=== PATIENT | male | born 1955 | race Caucasian/White ===

== ENCOUNTER 2017-07-19 14:41 | Emergency (ER) | payer MEDICARE, BC ==
[~2017-07-19] VITALS: Ht 188 cm; Wt 123.0 kg
[2017-07-19 14:48] VITALS: BP 144/77; PULSE 85; RESP 16; TEMP 98.5; O2SAT 96
--- NOTE | 2017-07-19 15:09 | PD ---
HPI Chief Complaint: Complaint Time Seen by Provider: 14:54 Travel History International Travel<30 days: No Contact w/Intl Traveler<30days: No Traveled to known affect area: No History of Present Illness HPI This patient complains of generalized weakness and excessive fatigue. Duration 3 days. Severity is moderate. He also complains that for one day he's had intermittent right flank pains which radiated to the right testicle. He also developed hematuria today. Denies fever or injury. No alleviating factors. No exacerbating factors PFSH Past Medical History Diminished Hearing: No Kidney Stones: Yes Respiratory: Yes (sleep apnea uses cpap) Influenza Vaccination: No Past Surgical History Surgical History: No Previous Surgery Eye Surgery: No Social History Alcohol Use: Yes Tobacco Use: No Allergies-Medications (Allergen,Severity, Reaction): Coded Allergies: No Known Allergies (Unverified , 07/19/17) Reported Meds & Prescriptions Reported Meds & Active Scripts Active No Active Prescriptions or Reported Medications Review of Systems General / Constitutional: No: Fever Eyes: No: Visual changes HENT: No: Headaches Cardiovascular: No: Chest Pain or Discomfort Respiratory: No: Shortness of Breath Gastrointestinal: No: Abdominal Pain Genitourinary: Positive: Hematuria, Flank Pain, No: Dysuria Musculoskeletal: Positive: Weakness, No: Pain Skin: No Rash Neurologic: Positive: Weakness Psychiatric: No: Depression Endocrine: No: Polydipsia Hematologic/Lymphatic: No: Easy Bruising Physical Exam Narrative GENERAL: Well-nourished, well-developed patient in no apparent distress. SKIN: Focused skin assessment reveals no rash and nodules. Skin is Warm and dry. HEAD: Atraumatic. Normocephalic. EYES: Pupils equal and round. No scleral icterus. No injection or drainage. ENT: No nasal bleeding or discharge. Mucous membranes pink and moist. NECK: Trachea midline. No JVD. CARDIOVASCULAR: Regular rate and rhythm. No murmur appreciated. RESPIRATORY: No accessory muscle use. Clear to auscultation. Breath sounds equal bilaterally. GASTROINTESTINAL: Abdomen soft, protuberant, non-tender, nondistended. Hepatic and splenic margins not palpable. MUSCULOSKELETAL: No obvious deformities. No clubbing. No cyanosis. No edema. NEUROLOGICAL: Awake and alert. No obvious cranial nerve deficits. Motor grossly within normal limits. Normal speech. PSYCHIATRIC: Appropriate mood and affect; insight and judgment normal. : Circumcised penis without lesions. No tenderness of either testicle. Data Data Last Documented VS Vital Signs Date Time Temp Pulse Resp B/P (MAP) Pulse Ox O2 Delivery O2 Flow Rate FiO2 07/19/17 14:48 98.5 85 16 144/77 (99) 96 Orders Orders Complete Blood Count With Diff (07/19/17 15:02) Comprehensive Metabolic Panel (07/19/17 15:02) Urinalysis - C+S If Indicated (07/19/17 15:02) Ct Abd/Pel W/O Iv Contrast (07/19/17 15:02) Iv Access Insert/Monitor (07/19/17 15:02) Sodium Chloride 0.9% Flush (Ns Flush) (07/19/17 15:15) Urine Culture (07/19/17 15:10) Labs Laboratory Tests Test 07/19/17 15:05 07/19/17 15:10 White Blood Count 7.1 TH/MM3 Red Blood Count 4.96 MIL/MM3 Hemoglobin 14.7 GM/DL Hematocrit 44.8 % Mean Corpuscular Volume 90.2 FL Mean Corpuscular Hemoglobin 29.6 PG Mean Corpuscular Hemoglobin Concent 32.8 % Red Cell Distribution Width 12.3 % Platelet Count 264 TH/MM3 Mean Platelet Volume 6.9 FL Neutrophils (%) (Auto) 71.3 % Lymphocytes (%) (Auto) 17.5 % Monocytes (%) (Auto) 9.8 % Eosinophils (%) (Auto) 1.1 % Basophils (%) (Auto) 0.3 % Neutrophils # (Auto) 5.1 TH/MM3 Lymphocytes # (Auto) 1.2 TH/MM3 Monocytes # (Auto) 0.7 TH/MM3 Eosinophils # (Auto) 0.1 TH/MM3 Basophils # (Auto) 0.0 TH/MM3 CBC Comment DIFF FINAL Differential Comment Blood Urea Nitrogen 22 MG/DL Creatinine 1.30 MG/DL Random Glucose 96 MG/DL Total Protein 7.5 GM/DL Albumin 3.7 GM/DL Calcium Level 9.1 MG/DL Alkaline Phosphatase 81 U/L Aspartate Amino Transf (AST/SGOT) 30 U/L Alanine Aminotransferase (ALT/SGPT) 61 U/L Total Bilirubin 0.9 MG/DL Sodium Level 136 MEQ/L Potassium Level 4.1 MEQ/L Chloride Level 101 MEQ/L Carbon Dioxide Level 29.5 MEQ/L Anion Gap 6 MEQ/L Estimat Glomerular Filtration Rate 56 ML/MIN Urine Collection Type CLEAN CATCH Urine Color PINK Urine Turbidity MOD Urine pH 5.5 Urine Specific [place] 1.028 Urine Protein 100 mg/dL Urine Glucose (UA) NEG mg/dL Urine Ketones NEG mg/dL Urine Occult Blood LARGE Urine Nitrite NEG Urine Bilirubin NEG Urine Leukocyte Esterase SMALL Urine RBC INNUM /hpf Urine WBC 25-49 /hpf Urine Squamous Epithelial Cells 6-8 /hpf Microscopic Urinalysis Comment CULTURE INDICATED Urine Collection Time 15:10 MDM Medical Decision Making Medical Screen Exam Complete: Yes Emergency Medical Condition: Yes Medical Record Reviewed: Yes Differential Diagnosis Kidney stone, anemia, flu syndrome Narrative Course I have reviewed the patient's electronic medical record. IV placed CBC is normal metabolic profile is normal LFT's are normal Urinalysis shows hematuria and will be cultured CT of abdomen and pelvis without contrast shows nothing emergent. No stone or renal mass. There is some incidental liver findings Patient stable for outpatient follow-up Recommend primary care and urology follow-up Diagnosis Primary Impression: Gross hematuria Additional Impressions: Fatigue Qualified Codes: R53.83 - Other fatigue Generalized weakness Flank pain Additional Instructions: Follow-up with primary care and urology Med/Other Pt SpecificInfo: Other Scripts No Active Prescriptions or Reported Meds Disposition: 01 DISCHARGE HOME Condition: Stable Curry Sanders MD Jul 19, 2017 15:09
[2017-07-19 15:12] LABS: AUTOMATED NEUTROPHIL # 5.1 TH/MM3 (1.8-7.7); BASOPHIL % 0.3 % (0.0-2.0); EOSINOPHIL # 0.1 TH/MM3 (0-0.4); EOSINOPHIL % 1.1 % (0.0-4.0); HEMATOCRIT 44.8 % (39.0-51.0); HEMO FLAGS DIFF FINAL; LYMPH % 17.5 % (9.0-44.0); LYMPHOCYTE # 1.2 TH/MM3 (1.0-4.8); MEAN CELL VOLUME 90.2 FL (80.0-100.0); MEAN CORPUSCULAR HEMOGLOBIN 29.6 PG (27.0-34.0); MEAN CORPUSCULAR HGB CONC 32.8 % (32.0-36.0); MONO % 9.8 % (0.0-8.0); NEUT % 71.3 % (16.0-70.0); PLATELET COUNT 264 TH/MM3 (150-450); RED BLOOD COUNT 4.96 MIL/MM3 (4.50-5.90); RED CELL DISTRIBUTION WIDTH 12.3 % (11.6-17.2); WHITE BLOOD COUNT 7.1 TH/MM3 (4.0-11.0)
[2017-07-19] MEDS ORDERED: SODIUM CHLORIDE 0.9% FLUSH 10 ML FLUSH IV FLUSH PRN (15:15)
[2017-07-19 15:16] LABS: BLOOD, URINE LARGE (NEG); GLUCOSE,URINE NEG (NEG); KETONE, URINE NEG (NEG); NITRITE,URINE NEG (NEG); PH, URINE 5.5 (5.0-8.5)
[2017-07-19 15:25] LABS: METHOD OF COLLECTION CLEAN CATCH; URINE COLOR PINK (YELLW/STRAW)
[2017-07-19 15:26] LABS: COMMENT (UR) CULTURE INDICATED; CULTURE IF INDICATED CULTURE INDICATED; RBC, URINE INNUM /hpf (0-3)
[2017-07-19 15:26] LABS: CHLORIDE 101 MEQ/L (98-107); POTASSIUM 4.1 MEQ/L (3.5-5.1); SODIUM (NA) 136 MEQ/L (136-145)
[2017-07-19 15:30] LABS: ANION GAP 6 MEQ/L (5-15); BICARBONATE 29.5 MEQ/L (21.0-32.0); BLOOD UREA NITROGEN 22 MG/DL (7-18)
[2017-07-19 15:33] LABS: ALT (GPT) 61 U/L (12-78); AST (GOT) 30 U/L (15-37); GLOMERULAR FILTRATION RATE 56 ML/MIN (>89)
[2017-07-19 15:35] LABS: TOTAL BILIRUBIN ADULT 0.9 MG/DL (0.2-1.0)
[2017-07-19 15:36] LABS: ALKALINE PHOSPHATASE 81 U/L (45-117)
--- NOTE | 2017-07-19 16:06 | RADRPT ---
EXAM DATE/TIME: 07/19/2017 15:20 [facility] COMPARISON: No previous studies available for comparison. INDICATIONS : Lower abdominal pain and hematuria today. General weakness x 3 days. ORAL CONTRAST: No oral contrast ingested. RADIATION DOSE: 23.65 CTDIvol (mGy) MEDICAL HISTORY : Renal calculi. SURGICAL HISTORY : None. ENCOUNTER: Initial ACUITY: 3 days PAIN SCALE: 5/10 LOCATION: Bilateral lower quadrant TECHNIQUE: Volumetric scanning of the abdomen and pelvis was performed. Using automated exposure control and ad justment of the mA and/or kV according to patient size, radiation dose was kept as low as reasonably achievable to obtain optimal diagnostic quality images. DICOM format image data is available electro nically for review and comparison. FINDINGS: LOWER LUNGS: The visualized lower lungs are clear. LIVER: Abnormal decreased density without lesion. There is no dilation of the biliary tree. No calcified g allstones. SPLEEN: Normal size without lesion. PANCREAS: Within normal limits. KIDNEYS: Left kidney demonstrates lobulated contour in the mid and upper poles suggestive of scar. There is n o mass, stone, or hydronephrosis. No ureteral stones are present. ADRENAL GLANDS: Within normal limits. VASCULAR: There is no aortic aneurysm. There is mild atherosclerotic disease. BOWEL/MESENTERY: The stomach, small bowel, and colon demonstrate no acute abnormality. There is no free intraperitone al air or fluid. ABDOMINAL WALL: Within normal limits. RETROPERITONEUM: There is no lymphadenopathy. BLADDER: No wall thickening or mass. REPRODUCTIVE: Within normal limits. INGUINAL: There is no lymphadenopathy. Small fat containing left inguinal hernia is present. MUSCULOSKELETAL: There are bone islands in the pelvic bones. No acute osseous abnormality is identified. CONCLUSION: 1. No acute finding is identified to explain the clinical symptoms. There are no renal stones. 2. Nonacute findings include hepatic steatosis and mild atherosclerotic disease. Asa Wild MD on July 19, 2017 at 15:58 Board Certified Radiologist. This report was verified electronically.
[2017-07-19 16:34] VITALS: BP 138/68
== END 2017-07-19 16:39 | disposition home or self-care (01) ==
LOC: PHED 14:41
DX: R31.0 Gross hematuria (principal); R53.1 Weakness; R10.30 Lower abdominal pain, unspecified
CPT/HCPCS: 74176; 80053; 81001; 85025; 87086; 99284

== ENCOUNTER 2017-07-22 10:24 | Emergency (ER) | payer MEDICARE, BC ==
[~2017-07-22] VITALS: Ht 188 cm; Wt 124.0 kg
[2017-07-22 10:25] VITALS: BP 142/76; PULSE 78; RESP 16; TEMP 97.5; O2SAT 94
[2017-07-22] MEDS ORDERED: KETOROLAC TROMETHAMINE 60 MG/2 ML (IM) VIAL IM ONE (11:00)
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
--- NOTE | 2017-07-22 13:06 | RADRPT ---
EXAM DATE/TIME: 07/22/2017 12:27 [facility] COMPARISON: No previous studies available for comparison. INDICATIONS : Left scrotal swelling and pain. MEDICAL HISTORY : Kidney stones. SURGICAL HISTORY : Knee and shoulder surgery. ENCOUNTER: Initial ACUITY: 1 day PAIN SCORE: 2/10 LOCATION: Left testicle. MEASUREMENTS: RIGHT TESTICLE: 4.7 x 3.0 x 2.2cm LEFT TESTICLE: 4.3 x 3.7 x 3.6cm FLOW: Yes FINDINGS: RIGHT TESTICLE: Homogeneous echotexture without intra or extratesticular mass. Blood flow is symmetric and within no rmal limits. There are 2 cysts associated with the epididymal head. The cysts each measure approximat anjelica 6 mm and 5 mm. There is a small hydrocele present. No evidence of varicocele. LEFT TESTICLE: Homogeneous echotexture without intra or extratesticular mass. Blood flow is symmetric and within no rmal limits. Tiny nodular density associated with the left epididymal head measuring 4 mm. There is a small hydrocele. There is also a varicocele. SCROTUM: There appears to be some left scrotal edema with some increased vascularity. CONCLUSION: 1. The testicles are both within normal limits. 2. There are 2 tiny right-sided epididymal cysts. 3. 4 mm nodular density associated with the left epididymal head. This is most likely an epididymal a ppendix. 4. Bilateral hydroceles. 5. Left varicocele 6. Nonspecific scrotal edema on the left side. Jaya Bahena MD on July 22, 2017 at 12:59 Board Certified Radiologist. This report was verified electronically.
[2017-07-22 13:40] VITALS: BP 141/85; PULSE 72; RESP 16; O2SAT 96
[2017-07-22] MEDS ORDERED: LEVA500T33 PO (13:48)
== END 2017-07-22 13:55 | disposition home or self-care (01) ==
LOC: PHED 10:24
DX: N50.812 Left testicular pain (principal)
CPT/HCPCS: 76870; 93975; 96374; 99284; J1885